=== PATIENT | male | born 1955 | race Caucasian/White ===

== ENCOUNTER → 2016-11-08 | Outpatient (CLI) | payer MEDICARE, OTHER ==
--- NOTE | 2016-11-11 13:14 | CT ---
EXAMINATION TYPE: CT angio abdomen DATE OF EXAM: 11/08/2016 8:05 AM COMPARISON: CTA abdomen October 26, 2015. HISTORY: Right iliac artery dissection CT DLP: 914.20 mGycm, Automated Exposure Control for Dose Reduction was Utilized. CONTRAST: CT scan of the abdomen and pelvis is performed with oral and without and with IV Contrast, patient in jected with 100 ml mL of Omnipaque 350. Aneurysm protocol with Three-D reconstructed images created o n independent workstation and reviewed. FINDINGS: VASCULAR: There is moderate eccentric noncalcified plaque in the abdominal aorta. No aneurysm is seen . There is patent celiac axis, SMA, and bilateral single renal arteries. MYRA is felt occluded at its origin with reconstitution may be from retrograde flow noted shortly after origin. This is similar in appearance to prior exam. There is small focal dissection in the right internal iliac artery at its origin with short segment o f false lumen on axial image 43. There is thrombosis just past this. This is causing significant sten osis of the right common iliac artery with patent portion measuring up to 3.7 mm in diameter on axial image 44. Expected diameter is 10.8 mm at this level. There is moderate to severe mixed plaque in ri ght common iliac artery past this causing stenosis just under 50%. There is patent internal iliac art krystal with suspected significant stenosis at origin.. There is patency of the external iliac artery wit hout significant plaque or stenosis. No significant plaque or stenosis is seen in common femoral edgar ry including branching into superficial and deep femoral arteries at right groin level. There is severe predominantly noncalcified plaque in the proximal left internal carotid artery causin g significant stenosis . Lumen diameter appears narrowed to 3.7 mm on coronal image 20 with reconstit ution to 10.7 mm just inferior to this. Remainder of left common iliac artery shows mild to moderate mixed plaque without significant stenosis. There is some prominent plaque at origin of left internal iliac artery with significant stenosis likely present external iliac artery shows no significant plaq ue or stenosis. There is no significant plaque or stenosis in the common femoral artery including bra nching into superficial and deep femoral arteries at left groin level. LUNG BASES: No significant abnormality is appreciated. LIVER/GB: No significant abnormality is appreciated. PANCREAS: No significant abnormality is seen. SPLEEN: Scattered calyces and throughout the spleen are present product of old granulomatous disease. ADRENALS: No significant abnormality is seen. KIDNEYS: A 5.5 cm partially exophytic simple appearing cyst upper pole level left kidney is redemonst rated. BOWEL: Normal-appearing appendix medially from base of cecum is redemonstrated and stable. PROSTATE/SEMINAL VESICLES: No gross abnormality seen. LYMPH NODES: No greater than 1cm abdominal or pelvic lymph nodes are appreciated. OSSEOUS STRUCTURES: There is moderate multilevel spurring in the thoracolumbar spine. Some disc space narrowing with vacuum disc phenomenon at lumbosacral junction is noted. Multilevel facet arthropathy lower lumbar levels is seen. OTHER: No significant additional abnormality is seen. IMPRESSION: 1. Focal dissection at right common iliac artery origin is stable. 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 Significant stenosis in the bilateral internal iliac arteries at origin is stable. There is diffuse a therosclerotic change in aorta and pelvic branch vessels most prominent at the aortic bifurcation. Si gnificant stenosis in both common iliac arteries is felt present estimated around 70% bilaterally wit hout significant change from prior study.
== END | disposition home or self-care (01) ==
LOC: RADCTMAIN 07:07
PROVIDERS: ATTEND Thoracic Surgery (Cardiothoracic Vascular Surgery)
DX: I77.72 Dissection of iliac artery (principal); I70.0 Atherosclerosis of aorta; I77.1 Stricture of artery
CPT/HCPCS: 74175; Q9967

== ENCOUNTER → 2016-11-14 | Outpatient (CLI) | payer MEDICARE, OTHER ==
--- NOTE | 2016-11-14 12:55 | XR ---
EXAMINATION TYPE: XR Hip Complete RT DATE OF EXAM: 11/14/2016 12:08 PM COMPARISON: NONE HISTORY: Pain TECHNIQUE: 2 views submitted FINDINGS: There is no evidence of erosive change or acute fracture. Calcification along the lateral margin of t he acetabulum suggest previous labral tear. IMPRESSION: 1. No evidence of acute fracture or dislocation.
--- NOTE | 2016-11-14 12:56 | XR ---
EXAM TYPE: LUMBAR SPINE X RAY SERIES COMPARISON: NONE HISTORY: Back pain TECHNIQUE: 3 views are submitted. FINDINGS: Alignment is anatomic. The pedicles are intact. The transverse processes are intact. There is no s pondylolysis or spondylolisthesis. Hypertrophic and degenerative change of the spine. Multilevel degenerative disc disease with severe c hanges at levels L3-S1. Vascular calcifications noted. Suspected left-sided renal stone measuring 8 m m. IMPRESSION: 1. Multilevel severe degenerative disc disease. 2. Suspect left renal stone..
== END ==
LOC: RADXRMAIN 11:35
PROVIDERS: ATTEND Family Medicine
DX: M51.36 Other intervertebral disc degeneration, lumbar region (principal); M25.551 Pain in right hip
CPT/HCPCS: 72100; 73502

== ENCOUNTER → 2016-11-28 | Outpatient (CLI) | payer MEDICARE, OTHER ==
[2016-11-28 16:54] LABS: Non-African American GFR(MDRD) 56 (>60 ml/min/1.73 sqM)
--- NOTE | 2016-11-28 21:02 | MR ---
EXAMINATION TYPE: MR lumbar spine wo/w con DATE OF EXAM: 11/28/2016 6:30 PM COMPARISON: NONE HISTORY: Laminectomy 20 years ago, skin ca 5-10 years ago, CONTRAST: The patient was injected with 19 mL intravenous MultiHance gadolinium contrast. Multiplanar, MultiSpin echo imaging of the lumbar spine was performed. L1-L2: Normal disc appearance without desiccation. No herniation, protrusion or disc bulging. No ca nal stenosis is present. Foramina are patent bilaterally. L2-L3: Moderate to severe disc desiccation. Posterior disc bulge with mild effacement ventral thecal sac. No evidence of disc herniation or central stenosis. There is evidence of facet joint arthropathy with left greater than right foraminal encroachment. Ventral spondylosis identified. L3-L4: Moderate to severe disc desiccation. Posterior disc bulge with mild effacement ventral thecal sac. No evidence of disc herniation or central stenosis. There is evidence of facet joint arthropathy with left greater than right foraminal encroachment. Ventral spondylosis identified. Schmorl node f ormation seen at the inferior endplate of L3 and superior endplate of L4. L4-L5: Moderate to severe disc desiccation. Moderate Posterior disc bulge with effacement ventral th ecal sac. Hypertrophy of the ligamentum flavum and facet joint arthropathy contribute to [id number]-sm-[id number] rate central stenosis. Facet joint arthropathy resulting in bilateral foraminal encroachment. L5-S1: Severe disc desiccation. Circumferential disc bulge with him mild encapsulating spur resulting in posterior disc endplate complex. Mild effacement of the ventral thecal sac. Facet joint arthropat hy resulting in severe bilateral foraminal encroachment. Changes of left hemilaminectomy with enhanci ng granulation tissue. Lumbar segments are intact. No paraspinal masses are identified. Conus medullaris has a normal appe arance. IMPRESSION: 1. Multilevel degenerative disc disease and spondylosis. Central stenosis at L4-5 is stable.
== END | disposition home or self-care (01) ==
LOC: RADMRIMAIN 16:23
PROVIDERS: ATTEND Family Medicine
DX: M48.06 Spinal stenosis, lumbar region (principal); M51.36 Other intervertebral disc degeneration, lumbar region; M47.816 Spondylosis without myelopathy or radiculopathy, lumbar region
CPT/HCPCS: 82565; 72158; A9577

== ENCOUNTER → 2017-11-03 | Outpatient (CLI) | payer MEDICARE ==
--- NOTE | 2017-11-03 14:34 | CT ---
EXAMINATION TYPE: CT angio abdomen DATE OF EXAM: 11/03/2017 COMPARISON: 11/08/2016 HISTORY: 62-year-old male Follow up right iliac artery dissection CT DLP: 592 mGycm, Automated Exposure Control for Dose Reduction was Utilized. Technique: CT scan of the abdomen images performed in the arterial phase with IV Contrast, patient i njected with 100 mL of Isovue 370. Coronal and sagittal MIP reconstructions performed. 3-D reconstruc tions generated on a dedicated independent workstation. FINDINGS: Heart normal size without pericardial effusion. Lung bases clear without pleural effusion. Liver mildly enlarged at 19.1 cm. There is low attenuation of the hepatic parenchyma, possible underl emely hepatic steatosis. There is a replaced right hepatic artery from the SMA. Gallbladder, adrenal glands, right kidney, and pancreas show no gross abnormality. Large 6.2 cm cyst within the left kidney is unchanged. Multiple calcified granulomas in the spleen re demonstrated. No dilated small bowel, free fluid, or free air. Moderate stool in the cecum and ascending colon. No perisplenic inflammatory change. Moderate atherosclerotic calcification and plaque throughout the abdominal aorta and iliac arteries. The celiac axis and SMA are patent Salazar bilateral renal arteries are patent. Redemonstrated occlusion at the origin of the inferior mesenteric artery. Redemonstrated 2.0 to 2.5 cm thick walled dissection flap redemonstrated along the proximal right com mon iliac artery. Similar severe narrowing at the origin of the bilateral internal iliac arteries and moderate stenosis at the proximal left common iliac artery with interval increase in plaque ulceration since prior exa m. Bones: Degenerative changes at the SI joints and mid to lower lumbar spine. Endplate spondylosis lowe r thoracic spine. IMPRESSION: 1. CHRONIC NONOCCLUDING DISSECTION MEASURING 2.0 TO 2.5 CM LONG INVOLVING THE PROXIMAL RIGHT COMMON I LIAC ARTERY. 2. MODERATE ATHEROSCLEROTIC NARROWING AT THE PROXIMAL LEFT COMMON ILIAC ARTERY WITH INCREASING PLAQUE ULCERATION SINCE PRIOR EXAM. SOME OVERHANGING, LOOSE APPEARING PLAQUE IS NOW PRESENT HERE. 3. CONTINUED SEVERE FOCAL STENOSES AT THE ORIGIN OF THE INTERNAL ILIAC ARTERIES ON BOTH SIDES. 5. STABLE OCCLUSION OF THE MYRA AT ITS ORIGIN WITH RETROGRADE RECONSTITUTION. 6. MILD HEPATOMEGALY (19.1 CM) AND SUGGESTION OF UNDERLYING HEPATIC STEATOSIS.
== END ==
LOC: RADCTMAIN 13:31
PROVIDERS: ATTEND Thoracic Surgery (Cardiothoracic Vascular Surgery)
DX: I77.72 Dissection of iliac artery (principal); I70.202 Unspecified atherosclerosis of native arteries of extremities, left leg; I70.203 Unspecified atherosclerosis of native arteries of extremities, bilateral legs; R16.0 Hepatomegaly, not elsewhere classified
CPT/HCPCS: 74175; Q9967

== ENCOUNTER → 2018-11-04 | Outpatient (CLI) | payer MEDICARE ==
[2018-11-04 13:47] LABS: Blood Urea Nitrogen 19 mg/dL (9-20)
--- NOTE | 2018-11-04 17:23 | CT ---
EXAMINATION TYPE: CT angio abdomen DATE OF EXAM: 11/04/2018 3:00 PM COMPARISON: 11/03/2017 HISTORY: Right iliac artery disection CT DLP: 928.50 mGycm Automated exposure control for dose reduction was used. TECHNIQUE: Performed without and with IV Contrast, patient injected with 100 ml mL of Isovue 370. Postcontrast imaging is performed at 5 mm thick sections.. FINDINGS: Abdominal aorta appears without dissection or aneurysm At the right common iliac artery there is a dissection. This may has some minimal extent into the pro ximal left common iliac artery. This extends to the internal and external Iliac branch. No dissection is evident elsewhere. This examination is compared with 11/03/2017, findings appear stable. : Mild fatty infiltration liver is present. Multiple scattered calcified granuloma are present. A sup erior left renal pole cyst is evident. Vascular calcifications within the aorta. The bowel without or al contrast are unremarkable. Urinary bladder appears unremarkable. IMPRESSION: THE RIGHT COMMON ILIAC ARTERY DISSECTION IS STABLE IN APPEARANCE FROM THE PREVIOUS YEAR.
== END ==
LOC: RADCTMAIN 12:47
PROVIDERS: ATTEND Thoracic Surgery (Cardiothoracic Vascular Surgery)
DX: I77.72 Dissection of iliac artery (principal)
CPT/HCPCS: 82565; 84520; 74175; 36415; Q9967

== ENCOUNTER → 2018-12-08 | Outpatient (CLI) | payer MEDICARE | END | disposition home or self-care (01) | LOC: LABWHC1 12:08 | PROVIDERS: ATTEND Physician Assistant | DX: Z01.812 Encounter for preprocedural laboratory examination (principal); N28.9 Disorder of kidney and ureter, unspecified | CPT/HCPCS: 36415; 82565; 84520 ==

== ENCOUNTER → 2019-01-15 | Outpatient (CLI) | payer MEDICARE ==
[2019-01-15 07:39] LABS: Basophils # (A) 0.1 k/uL (0-0.2); Basophils % (A) 1 %; Eosinophils % (A) 1 %; HCT 44.4 % (39.0-53.0); HGB 13.9 gm/dL (13.0-17.5); Lymphocytes # (A) 1.1 k/uL (1.0-4.8); Lymphocytes % (A) 14 %; MCH 28.9 pg (25.0-35.0); MCHC 31.4 g/dL (31.0-37.0); MCV 92.1 fL (80.0-100.0); Mean Platelet Volume 7.2; Monocytes # (A) 0.7 k/uL (0-1.0); Monocytes % (A) 9 %; Neutrophils # (A) 5.9 k/uL (1.3-7.7); Neutrophils % (A) 74 %; Platelet Count 405 k/uL (150-450); RBC 4.83 m/uL (4.30-5.90); RDW 14.5 % (11.5-15.5)
[2019-01-15 07:44] LABS: African American GFR (CKD) >90 (>60 ml/min/1.73 sqM); Anion Gap 8 mmol/L; Blood Urea Nitrogen 18 mg/dL (9-20); Calcium 10.3 mg/dL (8.4-10.2); Carbon Dioxide 32 mmol/L (22-30); Chloride 103 mmol/L (98-107); Glucose 120 mg/dL (74-99); Sodium 143 mmol/L (137-145)
[2019-01-15 07:45] LABS: INR 0.9 (<1.2); Partial Thromboplastin Time 27.9 sec (22.0-30.0); Prothrombin Time 10.1 sec (9.0-12.0)
[2019-01-15 07:51] LABS: Appearance,Urine Clear (Clear); Bilirubin,Urine Negative (Negative); Blood,Urine Negative (Negative); Color,Urine Yellow; Glucose,Urine (UA) Negative (Negative); Ketones,Urine Negative (Negative); Leukocyte Esterase,Urine Negative (Negative); Nitrite,Urine Negative (Negative); Protein,Urine Negative (Negative); Specific Gravity,Urine 1.015 (1.001-1.035); Urobilinogen,Urine <2.0 mg/dL (<2.0)
--- NOTE | 2019-01-15 08:51 | XR ---
EXAMINATION TYPE: XR chest 2V DATE OF EXAM: 01/15/2019 COMPARISON: 12/06/2015 TECHNIQUE: PA and lateral views submitted. HISTORY: Preop back surgery FINDINGS: The lungs are clear and there is no pneumothorax, pleural effusion, or focal pneumonia. Hyperinflat ion suggests COPD. Hypertrophic and degenerative change of the spine. IMPRESSION: 1. No acute process.
== END | disposition home or self-care (01) ==
LOC: LABPAT 06:37
PROVIDERS: ATTEND Orthopaedic Surgery Orthopaedic Surgery of the Spine
DX: Z01.818 Encounter for other preprocedural examination (principal); Z01.812 Encounter for preprocedural laboratory examination; Z79.01 Long term (current) use of anticoagulants; M48.061 Spinal stenosis, lumbar region without neurogenic claudication
CPT/HCPCS: 71046; 80048; 81003; 85025; 85610; 85730

== ENCOUNTER 2019-01-20 10:09 | Day surgery (SDC) | payer MEDICARE ==
[~2019-01-20 10:09] MED LIST: BACITRACIN 50,000 UNIT, POLYMYXIN B 500,000 UNIT in SODIUM CHLORIDE 0.9% IRRIGATIO 1,00... IRRIGATION ONE; LIDOCAINE 1% 20 ML VIAL (10MG/ML) FOR IV START INTRADERMA PRN; ONDANSETRON 4 MG/2 ML VIAL IVP ONE; ceFAZolin IN SWFI 2 GM/20 ML SYRINGE IVP ONE
[2019-01-20] MEDS: LACTATED RINGERS 1,000 ML IV SCH (10:54)
[2019-01-20] MEDS ORDERED: ePHEDrine SULFATE/0.9% NACL/PF 50 MG/5 ML SYRINGE IV ONE (12:21)
[2019-01-20] MEDS ORDERED: ROCURONIUM BROMIDE 10 MG/ML 10 ML VIAL IV ONE (12:21)
[2019-01-20] MEDS ORDERED: PHENYLEPHRINE-0.9% NACL SYG 1 MG/10 ML SYRINGE ONE (12:21)
[2019-01-20] MEDS ORDERED: SUCCINYLCHOLINE CHLORIDE 100 MG/5 ML SYR IV ONE (12:21)
[2019-01-20] MEDS ORDERED: LIDOCAINE 1% INJ 10MG/ML (20 ML MDV) ONE (12:21)
[2019-01-20] MEDS ORDERED: NEOSTIGMINE 1 MG/ML 10 ML VIAL ONE (12:21)
[2019-01-20] MEDS ORDERED: fentaNYL (PF) 50 MCG/ML 2 ML AMP ONE (12:21)
[2019-01-20] MEDS ORDERED: MIDAZOLAM 2 MG/2 ML VIAL ONE (12:21)
[2019-01-20] MEDS ORDERED: PROPOFOL 10 MG/ML 20 ML VIAL IV ONE (12:21)
[2019-01-20] MEDS ORDERED: GLYCOPYRROLATE 0.2 MG/ML 2 ML VIAL ONE (12:21)
[2019-01-20] MEDS ORDERED: GELATIN SPONGE,ABSORB (LARGE) 1 EACH SPONGE TOPICAL ONE (12:35)
[2019-01-20] MEDS ORDERED: THROMBIN (BOVINE) 5,000 UNIT VIAL TOPICAL ONE (12:35)
[2019-01-20] MEDS ORDERED: LIDOCAINE 0.5%-EPI 1:200,000 50 ML VIAL SQ ONE (12:35)
[2019-01-20] MEDS ORDERED: LACTATED RINGERS 1,000 ML IV ONE (13:00)
[2019-01-20] MEDS ORDERED: methylPREDNISolone ACETATE 40 MG/ML 1 ML VIAL MISCELLANE ONE (13:41)
--- NOTE | 2019-01-20 13:41 | FL ---
EXAMINATION TYPE: FL guidance operating room DATE OF EXAM: 01/20/2019 HISTORY: Flouroscopy time 1 seconds of fluoroscopy provided. IMPRESSION: 1. Fluoroscopy time.
[2019-01-20] MEDS ORDERED: BENZOCAINE/MENTHOL LOZENG 1 EACH LOZENGE MUCOUS MEM PRN (14:02)
[2019-01-20] MEDS ORDERED: HYDROmorphone 0.5 MG/0.5 ML SYRINGE IVP PRN (14:02)
[2019-01-20] MEDS ORDERED: HYDROmorphone 1 MG/ML 1 ML SYRINGE IVP PRN (14:02)
[2019-01-20] MEDS ORDERED: MAGNESIUM HYDROXIDE 2,400 MG/10 ML CUP PO PRN (14:02)
[2019-01-20] MEDS ORDERED: KETOROLAC 30 MG/ML 1 ML VIAL IVP PRN (14:03)
[2019-01-20] MEDS ORDERED: HYDROcodone/APAP 5-325MG 1 EACH TAB PO PRN (14:03)
[2019-01-20] MEDS ORDERED: IBUPROFEN 600 MG TAB PO PRN (14:03)
[2019-01-20] MEDS ORDERED: CYCLOBENZAPRINE 10 MG TAB PO PRN (14:04)
[2019-01-20] MEDS ORDERED: ALBUTEROL NEBULIZED 2.5 MG/3 ML INHALATION PRN (14:04)
--- NOTE | 2019-01-20 14:10 | P.OP ---
Date of Procedure: 01/20/19 Preoperative Diagnosis: Severe spinal stenosis L4 5, L3 4, neurogenic claudication, lower extremity radiculopathy, degenerative disc disease, degenerative scoliosis, low back pain, facet arthrosis Postoperative Diagnosis: Same Anesthesia: GETA Pathology: none sent Condition: stable Disposition: PACU Description of Procedure: DESCRIPTION OF PROCEDURE(S): BRIEF OPERATIVE NOTE Preoperative Diagnosis: Severe spinal stenosis L4 5, L3 4, neurogenic claudication, lower extremity radiculopathy, degenerative disc disease, degenerative scoliosis, low back pain, facet arthrosis Postoperative Diagnosis: Same Procedure: Laminectomy and decompression bilaterally with partial medial facetectomy and foraminotomy L3 4 L4 5 Use of fluoroscopic guidance Placement of interlaminar stabilization device (Coflex device) L3 4 L4 5 Surgeon: Dr. Foster Sort Supervisor: Timmy SÁNCHEZ who is present throughout the entire the case persistence during positioning, dissection, exposure, visualization, and all crucial elements of the case as well as closure. Anesthesia: General anesthesia Estimated blood loss: Approximate 75 mL Complications: None apparent Components implanted: [employer] Coflex interlaminar stabilization device 12 mm at L3 4 and L4 5 Disposition: To recovery room in good stable condition. OPERATIVE INDICATIONS The patient has been having issues in their lower back and lower extremities. The patient was having evidence of neurogenic claudication and spinal stenosis along with issues with lower extremity radiculopathy. The patient was found to have significant and severe spinal stenosis at L3 4 and L4 5 which correlated well with their low back and lower extremity symptoms. He had significant foraminal stenosis and facet arthrosis with degenerative spondylosis. All these issues correlate very well with his low back and lower extremity symptoms as well as his neurologic intermittent claudication and lower extremity rad iculopathy. The patient has been through conservative treatment. He is not having any prolonged benefit despite aggressive conservative treatment. With their imaging, and the level of their stenosis and their propensity for the possibility of recurrent stenosis I felt that decompression with intralaminar stabilization would be a good benefit for the patient. We discussed various treatment options including surgery, and the patient wishes to proceed with surgery We discussed the risk, patient's alternatives and benefits of surgery including but not limited to, risk of bleeding risk of infection, risk of need for further surgery, risk of decreased, loss of motion, loss of function, nerve damage, paralysis, heart attack, blindness and . OPERATIVE SUMMARY After discussing all the risks, patient alternatives and benefits at length, the patient elected to proceed with surgical intervention, signed informed consent, and presented for their procedure. The patient was seen and examined in the preoperative holding area and the surgical site was marked. The patient was given antibiotics and brought to the operating room. The patient was sedated and intubated by anesthesia in standard fashion. The patient was positioned on to the operating room table in a prone position on the appropriate frame which was well-padded and well molded. We were careful to pad any bony prominences and pressure points. We were careful to maintain the patient's cervical spine and good neutral alignment and position throughout. The patient was prepped and draped in a normal standard fashion. An appropriate timeout and keystone protocol performed. We were able to proceed with the surgery. Fluoroscopy was utilized to establish the appropriate level. The local wound area was infiltrated with local anesthetic. An incision was made at the midline longitudinally over the appropriate levels extending from his prior old incision at the midline and extending cephalad at L3 4 and L4 5 approximately 6 cm in length. Dissection was taken down subcutaneously to the level of the fascia which was split midline. Dissection was taken over the lamina. Intraoperative fluoroscopy was taken which showed a marker at the appropriate level. With the appropriate level positively confirmed, we were able to proceed with laminectomy. The wound was copiously irrigated and suctioned dry as had been done periodically throughout the case. I performed a laminectomy with a combination of curettes and a high-speed bur and Kerrison rongeurs. He had quite severe thickening of ligamentum flavum at L3 4 L4 5 in particular at L4 5 with significant facet arthrosis bilateral foraminal stenosis found at both these levels. These were remedied with the decompression. A small medial facetectomy was performed again further access. This was done bilaterally at that level. A partial foraminotomy was also performed. Portions of the ligamentum flavum were taken down to expose the dura and traversing nerve root. I was able to mobilize the traversing nerve root and gain access to the disc space. I did not feel he had to perform any discectomy. We were no extruded fragments. We're able get wide lateral decompression at L3 4 and L4 5 with the laminectomy foraminotomy and partial medial facetectomy. There is no evidence of dural tear or leak. Good hemostasis maintained. The wound was copiously irrigated and suctioned dry. Good decompression was noted. At this point further prepared the interspinous process and interlaminar space with a combination of curettes and a high-speed bur and Kerrison rongeurs. As able get good parallel alignment at the interspinous process space and interlaminar space. I used a trial spacer for the Coflex device and have good fit and fill with the appropriate size device. I had to shave down the spinous process at to allow for appropriate positioning of the Coflex device. The device was prepared and then positioned and malleted in position with good alignment and good position and good bony purchase at the interlaminar space. The position was checked and found to be approximately 3 mm away from the dura without impingement on the dura itself. This was done first at L4 5 and then at L3 4. It was checked and found to be stable. Intraoperative C-arm was utilized to confirm the alignment and position at the appropriate levels. We were able to proceed with closure. The fascia was closed for a watertight closure. The subcuticular tissue was closed with absorbable suture. The wound was cleaned and dried and dressed with the appropriate dressing. The drapes were broken down. The patient was gently rolled back onto their hospital bed being careful to maintain their cervical spine and good neutral alignment and position. They were woken up by anesthesia, extubated, and brought to the recovery room in good stable condition. The patient will be admitted to the hospital for observation and for appropriate postoperative care, medical management and monitoring. We will continue to follow them closely about the postoperative course.
[2019-01-20] MEDS: HYDROmorphone 0.5 MG/0.5 ML SYRINGE IVP PRN ×4 (14:43→15:10)
[2019-01-20 15:42] VITALS: BMI 25.2
[2019-01-20] MEDS: SODIUM CHLORIDE 0.9% 1,000 ML IV SCH (19:20)
[2019-01-20] MEDS: METOPROLOL TARTRATE 25 MG TAB PO SCH (20:52)
[2019-01-20] MEDS: ceFAZolin IN SWFI 2 GM/20 ML SYRINGE IVP SCH (20:53)
[2019-01-21] MEDS: HYDROcodone/APAP 5-325MG 1 EACH TAB PO PRN ×2 (00:57→06:22)
[2019-01-21] MEDS: SODIUM CHLORIDE 0.9% 1,000 ML IV SCH (05:44)
[2019-01-21] MEDS ORDERED: ceFAZolin IN SWFI 2 GM/20 ML SYRINGE IVP SCH (06:30)
[2019-01-21 07:27] VITALS: BP 151/68; PULSE 71; RESP 15; TEMP 97.9
[2019-01-21] MEDS: ceFAZolin IN SWFI 2 GM/20 ML SYRINGE IVP SCH (07:27)
[2019-01-21] MEDS: LACTATED RINGERS 1,000 ML IV SCH (07:39)
[2019-01-21] MEDS ORDERED: SYMBICORT 160-4.5 MCG INHALER INHALATION SCH (08:00)
[2019-01-21] MEDS: GABAPENTIN 300 MG CAP PO SCH (08:24)
[2019-01-21] MEDS: METOPROLOL TARTRATE 25 MG TAB PO SCH (08:25)
[2019-01-21] MEDS ORDERED: ATORVASTATIN 10 MG TAB PO SCH (09:00)
[2019-01-21] MEDS ORDERED: DILTIAZEM CD 120 MG CAP.ER.24H PO SCH (09:00)
[2019-01-21] MEDS ORDERED: LOSARTAN 50 MG TAB PO SCH (09:00)
--- NOTE | 2019-01-21 09:37 | P.DS ---
Providers Date of admission: 01/20/2019 Attending physician: Sonya Foster Primary care physician: Eddie Talbert Hospital Course: The patient presented on the day of admission as per their operative note. He had severe spinal stenosis L3 4 and L4 5 with neurogenic claudication lower extremity radiculopathy. He underwent his laminectomy decompression with placement of interlaminar stabilizer at L3 4 and L4 5 as per his operative note. He says his legs are doing well. He feels there is not as much numbness tingling. He has some limited motion already had bedside and to the bathroom. He says he is tolerating his diet adequately. Physical Exam The incision site is clean dry and intact. There is no erythema no drainage. There is no purulence no evidence of infection. The dressing is changed. There is no active drainage. There is no significant swelling. Abdomen soft and nontender. Chest has good excursion with deep inspiration and expiration. The patient has active and passive range of motion intact at the upper and lower extremities. There is no acute change in neurologic status. He has sustained dorsal flexion or flexion and EHL intact. His thighs and calves are soft and nontender. Hospital Course Postoperative day #1 status post decompressive laminectomy and bilateral foraminotomies L3 4 L4 5 for his severe spinal stenosis with lower extremity radiculopathy claudication The patient has been making good progress postoperatively. They have completed the prophylactic antibiotics without any signs or symptoms of infection. The patient has been able to advance their diet, and is tolerating diet adequately. The pain was initially controlled with IV medications and is now controlled appropriately with oral medications. The patient has been able to increase their mobilization. The patient has progressed appropriately. I think they are in good stable condition for discharge today. They will be sent home with appropriate prescriptions. I answered their questions to the best of my ability in a language that they can understand and they are agreeable with the plan. They will follow up as directed in approximately 2 weeks or sooner if he is having any problems. Patient Condition at Discharge: Good Plan - Discharge Summary Discharge Rx Participant: No New Discharge Prescriptions: New HYDROcodone/APAP 5-325MG [[place] 5] 1 each PO Q4HR PRN #18 tab PRN Reason: Pain No Action Simvastatin [Zocor] 20 mg PO QAM Metoprolol Tartrate [Lopressor] 25 mg PO BID Albuterol Inhaler [Ventolin Inhaler] 1 puff INHALATION Q8HR PRN PRN Reason: Wheezing Gabapentin [Neurontin] 900 mg PO DAILY Cyclobenzaprine [Flexeril] 10 mg PO BID PRN PRN Reason: Muscle Spasm Apixaban [Eliquis] 5 mg PO BID Paxil(Unknown Dose) 1 tab PO HS Fluticasone/Vilanterol [Breo Ellipta 200-25 Mcg INH] 1 inhalation INHALATION QAM Diltiazem HCl [Diltiazem ER] 120 mg PO QAM Losartan Potassium 100 mg PO QAM Discharge Medication List Albuterol Inhaler [Ventolin Inhaler] 1 puff INHALATION Q8HR PRN 11/20/13 [History] Metoprolol Tartrate [Lopressor] 25 mg PO BID 11/20/13 [History] Simvastatin [Zocor] 20 mg PO QAM 11/20/13 [History] Apixaban [Eliquis] 5 mg PO BID 01/19/19 [History] Cyclobenzaprine [Flexeril] 10 mg PO BID PRN 01/19/19 [History] Diltiazem HCl [Diltiazem ER] 120 mg PO QAM 01/19/19 [History] Fluticasone/Vilanterol [Breo Ellipta 200-25 Mcg INH] 1 inhalation INHALATION QAM 01/19/19 [History] Gabapentin [Neurontin] 900 mg PO DAILY 01/19/19 [History] Losartan Potassium 100 mg PO QAM 01/19/19 [History] Paxil(Unknown Dose) 1 tab PO HS 01/19/19 [History] HYDROcodone/APAP 5-325MG [[place] 5] 1 each PO Q4HR PRN #18 tab 01/21/19 [Rx] Follow up Appointment(s)/Referral(s): Sonya Foster DO [Doctor of Osteopathic Medicine] - 2 Weeks Activity/Diet/Wound Care/Special Instructions: Keep site clean. May shower with waterproof Tegaderm intact. Do not soak in a tub. After 72 hours postoperatively, patient May remove dressing and then may shower with area uncovered. Leave Steri-Strips intact and allow them to fray off on their own. May ambulate as tolerated. Avoid heavy or rigorous activity. No repetitive bending twisting or lifting. No overhead work. Discharge Disposition: HOME SELF-CARE
[2019-01-21] MEDS ORDERED: APIXABAN 5 MG TAB PO SCH (14:04)
== END 2019-01-21 13:20 | disposition home or self-care (01) ==
LOC: OR 10:09 → 4SSUR 14:13 → OR 15:00
PROVIDERS: ATTEND Orthopaedic Surgery Orthopaedic Surgery of the Spine
DX: M48.062 Spinal stenosis, lumbar region with neurogenic claudication (principal); M51.16 Intervertebral disc disorders with radiculopathy, lumbar region; M47.26 Other spondylosis with radiculopathy, lumbar region; M41.50 Other secondary scoliosis, site unspecified; M96.1 Postlaminectomy syndrome, not elsewhere classified; I10 Essential (primary) hypertension; I48.91 Unspecified atrial fibrillation; H40.9 Unspecified glaucoma; R45.0 Nervousness; Z82.49 Family history of ischemic heart disease and other diseases of the circulatory system; Z85.828 Personal history of other malignant neoplasm of skin; I73.9 Peripheral vascular disease, unspecified; J44.9 Chronic obstructive pulmonary disease, unspecified; G47.33 Obstructive sleep apnea (adult) (pediatric); F17.210 Nicotine dependence, cigarettes, uncomplicated; Z86.73 Personal history of transient ischemic attack (TIA), and cerebral infarction without residual deficits; J98.4 Other disorders of lung; Z79.01 Long term (current) use of anticoagulants; Z79.1 Long term (current) use of non-steroidal anti-inflammatories (NSAID); Z79.51 Long term (current) use of inhaled steroids; Z79.899 Other long term (current) drug therapy; Z88.8 Allergy status to other drugs, medicaments and biological substances
CPT/HCPCS: 22867; 94640; 97161; 72020; C1713; J2250; J1030; J2710; J2405; J2001; J3010; J2370; J0330; J2704; J1170; J0690 ×2; 86850; 86900; 86901

== ENCOUNTER → 2019-11-19 | Outpatient (CLI) | payer MEDICARE ==
[2019-11-19 15:12] LABS: African American GFR (CKD) >90 (>60 ml/min/1.73 sqM); Blood Urea Nitrogen 18 mg/dL (9-20); Non-African American GFR(CKD) 82 (>60 ml/min/1.73 sqM)
--- NOTE | 2019-11-19 19:27 | CT ---
CT angiogram of the abdomen and pelvis HISTORY: Dissection of iliac artery Helical acquisition through the abdomen and pelvis following 100 cc Isovue-[address] performed pre a nd postcontrast, 3-dimensional reconstructions performed on an alternate workstation. Correlation to prior CT dated 11/04/2018 The lung bases are clear, there is no pleural pericardial effusion. ABDOMEN: There is no pneumoperitoneum, retroperitoneal adenopathy, or ascites. The dissection noted on prior exam involving the right iliac artery shows a similar appearance to pre vious exam. There is no evident flow limitation, internal and external iliac arteries are patent. Ath eromatous changes are present involving the aorta, small focal filling defect along the left lateral margin of the aorta just cephalad to the origin of the left renal artery may represent a small shelfl oralia plaque shows a similar appearance. Kidneys show normal perfusion, stable appearance. Solid organs are also stable. Postop changes noted to the spinous processes of the L3-4 and L4-5 levels, degenerative disc changes are present in the visualized lumbar spine, Schmorl's node formation present at multiple endplates, t here is multilevel spondylosis and intervertebral vacuum phenomenon present. Prostate is enlarged and shows associated calcification. IMPRESSION: The appearance of patient's right common iliac artery dissection is stable.
== END | disposition home or self-care (01) ==
LOC: RADCTMAIN 14:42
PROVIDERS: ATTEND Thoracic Surgery (Cardiothoracic Vascular Surgery)
DX: I77.72 Dissection of iliac artery (principal)
CPT/HCPCS: 82565; 84520; 36415; 74174; Q9967

== ENCOUNTER 2020-01-12 09:31 | Day surgery (SDC) | payer MEDICARE ==
[2020-01-10 13:06] VITALS: BMI 28.7
[~2020-01-12 09:31] MED LIST changes: -BACITRACIN 50,000 UNIT, POLYMYXIN B 500,000 UNIT in SODIUM CHLORIDE 0.9% IRRIGATIO 1,00... IRRIGATION ONE; +LACTATED RINGERS 1,000 ML IV SCH; -LIDOCAINE 1% 20 ML VIAL (10MG/ML) FOR IV START INTRADERMA PRN; -ONDANSETRON 4 MG/2 ML VIAL IVP ONE; -ceFAZolin IN SWFI 2 GM/20 ML SYRINGE IVP ONE
[2020-01-12] MEDS ORDERED: LIDOCAINE 1% (10MG/ML) FOR IV START INTRADERMA ONE (10:05)
[2020-01-12 10:06] VITALS: TEMP 98.3
--- NOTE | 2020-01-12 10:35 | P.GSHP ---
History of Present Illness H&P Date: 01/12/20 CHIEF COMPLAINT: Colon screen HISTORY OF PRESENT ILLNESS: The patient is a 64-year-old male who presents for colon screen. Lower endoscopy was offered for further evaluation and management. PAST MEDICAL HISTORY: Please see list. PAST SURGICAL HISTORY: Please see list. MEDICATIONS: Please see list. ALLERGIES: Please see list. SOCIAL HISTORY: No illicit drug use FAMILY HISTORY: No reports of Crohn disease or ulcerative colitis. REVIEW OF ORGAN SYSTEMS: CONSTITUTIONAL: No reports of fevers or chills. PHYSICAL EXAM: VITAL SIGNS: Stable GENERAL: Well-developed pleasant in no acute distress. HEENT: No scleral icterus. Extraocular movements grossly intact. Moist buccal mucosa. NECK: Supple without lymphadenopathy. CHEST: Unlabored respirations. Equal bilateral excursions. CARDIOVASCULAR: Regular rate and rhythm. Distal 2+ pulses. ABDOMEN: Soft, nontender, nondistended. MUSCULOSKELETAL: No clubbing, cyanosis, or edema. ASSESSMENT: 1. Colon screen. PLAN: 1. Recommend proceeding with a lower endoscopy Past Medical History Past Medical History: Atrial Fibrillation, COPD, Hyperlipidemia, Hypertension, Sleep Apnea/CPAP/BIPAP Additional Past Medical History / Comment(s): COPD,arthritis History of Any Multi-Drug Resistant Organisms: None Reported Past Surgical History: Back Surgery Additional Past Surgical History / Comment(s): groin cyst, lt knee acl repair, prior colonoscopy Past Anesthesia/Blood Transfusion Reactions: No Reported Reaction Past Psychological History: No Psychological Hx Reported Smoking Status: Former smoker - Past Family History Mother Family Medical History: Congestive Heart Failure (CHF), Dementia, Hypertension Medications and Allergies Home Medications Medication Instructions Recorded Confirmed Type Albuterol Inhaler (Mhu) [Ventolin 1 puff INHALATION Q8HR PRN 11/20/13 01/12/20 History Inhaler] Metoprolol Tartrate [Lopressor] 25 mg PO BID 11/20/13 01/12/20 History Simvastatin [Zocor] 20 mg PO QAM 11/20/13 01/12/20 History Apixaban [Eliquis] 5 mg PO BID 01/19/19 01/12/20 History Diltiazem HCl [Diltiazem ER] 120 mg PO QAM 01/19/19 01/12/20 History Fluticasone/Vilanterol [Breo 1 inhalation INHALATION QAM 01/19/19 01/12/20 History Ellipta 200-25 Mcg INH] Losartan Potassium 100 mg PO QAM 01/19/19 01/12/20 History Celecoxib [CeleBREX] 200 mg PO DAILY 01/10/20 01/12/20 History Allergies Allergy/AdvReac Type Severity Reaction Status Date / Time baclofen Allergy Rash/Hives Verified 01/12/20 09:56 Surgical - Exam Vital Signs Temp Pulse Resp BP Pulse Ox 98.3 F 81 18 160/80 95 01/12/20 09:49 01/12/20 09:49 01/12/20 09:49 01/12/20 09:49 01/12/20 09:49
[2020-01-12] MEDS ORDERED: PROPOFOL 10 MG/ML 20 ML VIAL IV ONE (10:36)
--- NOTE | 2020-01-12 11:08 | P.PCN ---
Date of Procedure: 01/12/20 Description of Procedure: PREOPERATIVE DIAGNOSIS: Personal history of colon polyps POSTOPERATIVE DIAGNOSIS: Sigmoid colon polyp Descending colon polyp Sigmoid diverticulosis OPERATION: Colonoscopy to the ileocecal valve and appendiceal orifice, cecum Colonoscopy with cold forceps biopsies SURGEON: Madie Coyle MD. ANESTHESIA: MAC. INDICATIONS: The patient is an 64-year-old male who presents with personal history of colon polyps. Last colonoscopy 5 years. Benefits and risks were described and informed consent was obtained. DESCRIPTION OF PROCEDURE: The patient had undergone Suprep. He had been brought into the operating room and laid in the left lateral decubitus position. After adequate intravenous sedation, the rectum was examined with 2% lidocaine jelly. The prostate was unremarkable. No external hemorrhoids were encountered. The rectal tone was within normal limits. No lesions were palpated in the rectal vault. An Olympus colonoscope was advanced until the cecum, ileocecal valve and appendiceal orifice were clearly viewed. The prep was fair. Sigmoid diverticulosis was encountered with redundant sigmoid colon requiring abdominal wall pressure. Multiple colonic polyps were found and removed with cold biopsy forceps.. No evidence of focal colitis was found. Retroflexion of the scope demonstrated no internal hemorrhoids. The colon was desufflated. The patient had tolerated the procedure well. Withdrawal time was over 6 minutes. FINDINGS: Aronchick preparation quality scale 2 (1-5) No internal hemorrhoids No external hemorrhoids No arteriovenous malformations. Sigmoid diverticulosis Redundant sigmoid colon Removal of 3 polyps from the proximal, mid transverse colon and descending colon: - Cold forceps biopsy at 30 cm from the anal verge x 2, 4 and 3 mm polyps, descending colon - Cold forceps biopsy at 20 cm from the anal verge, 5 mm polyp, sigmoid colon No focal colitis. RECOMMENDATIONS: Repeat colonoscopy 5 years, 2024 Plan - Discharge Summary Discharge Rx Participant: Yes New Discharge Prescriptions: No Action Simvastatin [Zocor] 20 mg PO QAM Metoprolol Tartrate [Lopressor] 25 mg PO BID Albuterol Inhaler (Mhu) [Ventolin Inhaler] 1 puff INHALATION Q8HR PRN PRN Reason: Wheezing Apixaban [Eliquis] 5 mg PO BID Fluticasone/Vilanterol [Breo Ellipta 200-25 Mcg INH] 1 inhalation INHALATION QAM Diltiazem HCl [Diltiazem ER] 120 mg PO QAM Losartan Potassium 100 mg PO QAM Celecoxib [CeleBREX] 200 mg PO DAILY Discharge Medication List Albuterol Inhaler (Mhu) [Ventolin Inhaler] 1 puff INHALATION Q8HR PRN 11/20/13 [History] Metoprolol Tartrate [Lopressor] 25 mg PO BID 11/20/13 [History] Simvastatin [Zocor] 20 mg PO QAM 11/20/13 [History] Apixaban [Eliquis] 5 mg PO BID 01/19/19 [History] Diltiazem HCl [Diltiazem ER] 120 mg PO QAM 01/19/19 [History] Fluticasone/Vilanterol [Breo Ellipta 200-25 Mcg INH] 1 inhalation INHALATION QAM 01/19/19 [History] Losartan Potassium 100 mg PO QAM 01/19/19 [History] Celecoxib [CeleBREX] 200 mg PO DAILY 01/10/20 [History]
[2020-01-12 11:47] VITALS: BP 112/74; PULSE 80; RESP 20
== END 2020-01-12 12:10 | disposition home or self-care (01) ==
LOC: ORWHC2ENDO 09:31
PROVIDERS: ATTEND Surgery Plastic and Reconstructive Surgery
DX: Z12.11 Encounter for screening for malignant neoplasm of colon (principal); D12.5 Benign neoplasm of sigmoid colon; D12.4 Benign neoplasm of descending colon; K57.30 Diverticulosis of large intestine without perforation or abscess without bleeding; Q43.8 Other specified congenital malformations of intestine; Z86.010 Personal history of colon polyps; I48.91 Unspecified atrial fibrillation; J44.9 Chronic obstructive pulmonary disease, unspecified; E78.5 Hyperlipidemia, unspecified; I10 Essential (primary) hypertension; G47.30 Sleep apnea, unspecified; M19.90 Unspecified osteoarthritis, unspecified site; Z99.89 Dependence on other enabling machines and devices; Z98.890 Other specified postprocedural states; Z87.2 Personal history of diseases of the skin and subcutaneous tissue; Z87.39 Personal history of other diseases of the musculoskeletal system and connective tissue; Z87.891 Personal history of nicotine dependence; Z79.899 Other long term (current) drug therapy; Z79.01 Long term (current) use of anticoagulants; Z79.51 Long term (current) use of inhaled steroids; Z79.1 Long term (current) use of non-steroidal anti-inflammatories (NSAID); Z88.8 Allergy status to other drugs, medicaments and biological substances; Z82.49 Family history of ischemic heart disease and other diseases of the circulatory system; Z81.8 Family history of other mental and behavioral disorders
CPT/HCPCS: 45380; 88305; J2704

== ENCOUNTER → 2020-05-15 | Outpatient (CLI) | payer MEDICARE ==
--- NOTE | 2020-05-15 15:53 | XR ---
EXAMINATION TYPE: XR cervical spine limited DATE OF EXAM: 05/15/2020 COMPARISON: NONE HISTORY: Pain TECHNIQUE: 3 views submitted FINDINGS: Loss of the normal cervical lordosis with a 2 mm retrolisthesis of C5 relative to C6. Multi level hypertrophic changes are seen and there is moderate to severe degenerative disc disease C5-6 an d C6-C7. Multilevel facet arthropathy. Prevertebral soft tissue structures within normal limits. [place] toid intact. IMPRESSION: 1. Multilevel facet arthropathy with the moderate to severe degenerative disc disease C5-6 and C6-C7.
== END | disposition home or self-care (01) ==
LOC: RADXRMAIN 14:58
PROVIDERS: ATTEND Nurse Practitioner Family
DX: M50.322 Other cervical disc degeneration at C5-C6 level (principal); M47.812 Spondylosis without myelopathy or radiculopathy, cervical region
CPT/HCPCS: 72040

== ENCOUNTER → 2020-11-16 | Outpatient (CLI) | payer MEDICARE ==
--- NOTE | 2020-11-17 05:19 | CT ---
EXAMINATION TYPE: CT angio abdomen pelvis DATE OF EXAM: 11/16/2020 COMPARISON: 11/19/2019 HISTORY: H/O dissection of iliac artery CT DLP: 710.70 mGycm Automated exposure control for dose reduction was used. CONTRAST: Performed with IV Contrast, patient injected with 100ml mL of Isovue 370. Images were obtained from the diaphragm to the proximal femurs with IV contrast. There are 3-D post p rocessed images. There is arterial flow in the celiac artery and superior mesenteric artery. There is bilateral arteri al flow in the renal arteries. Abdominal aorta shows no aneurysm. There is arterial dissection seen a t the proximal iliac arteries bilaterally. On the right side this extends to the origin of the senior internet sales consultant al iliac artery. There is some plaque formation and stenosis at the origin of the right internal jg c artery. The dissection is producing some blockage of the origin right internal iliac artery. The di ssection of the left common iliac artery is only a very short segment. There is approximate 50% steno sis. There is arterial flow in both femoral arteries. Bladder distends smoothly. There is no pelvic mass. Appendix appears normal. There is no mesenteric e laquita. There is no ascites or free air. There is no evidence of a solid renal mass. There is 6.5 cm co rtical cyst upper pole left kidney. There is no adrenal mass. There are numerous calcified splenic gr anulomata. Liver pancreas stomach appear intact. The lung bases are clear of consolidation. 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 There is stenosis at the origin right internal iliac ar alex unchanged. 50% stenosis left common iliac artery unchanged. No evidence of aortic dissection. Th ere is variable plaque formation in the lower abdominal aorta without hemodynamic stenosis.
== END | disposition home or self-care (01) ==
LOC: RADCTMAIN 11:34
PROVIDERS: ATTEND Thoracic Surgery (Cardiothoracic Vascular Surgery)
DX: I77.1 Stricture of artery (principal)
CPT/HCPCS: 82565; 84520; 36415; 74174; Q9967

== ENCOUNTER → 2021-02-09 | Outpatient (CLI) | payer MEDICARE ==
[~2021-02-09] MED LIST changes: -LACTATED RINGERS 1,000 ML IV SCH; +REGADENOSON 0.4 MG/5 ML SYRINGE IV PRN
--- NOTE | 2021-02-09 10:46 | NM ---
EXAMINATION TYPE: NM stress lexiscan cardiolite DATE OF EXAM: 02/09/2021 COMPARISON: NONE HISTORY: Shortness of breath TECHNIQUE: After the intravenous administration of 10.1 mCi Tc 99m Sestamibi - Cardiolite resting SP ECT images acquired 45 minutes post injection. The patient received 0.4mg Lexiscan, 25.4 mCi Tc 99m Sestamibi - Stress images obtained [address] injection FINDINGS: Review of stress and rest SPECT images demonstrates ingestion of a small area of stress-induced rever sibility involving the apical lateral myocardium. Gated analysis shows normal wall motion with an es timated left ventricular ejection fraction of 53 %. Were called to referring clinician 02/09/2021 at 1 0:42 AM. IMPRESSION: Findings suspicious for small area of stress-induced reversible ischemia apical lateral myocardium co rrelate clinically.
--- NOTE | 2021-02-09 12:47 | EST ---
EXERCISE STRESS DATE OF SERVICE: February 09, 2021 AGE: 65 SEX: M HT: 5'10" WT: 220 lbs. PROTOCOL: Lexiscan STAGE: NA DURATION OF EXERCISE: NA HEART RATE REST: 60 BLOOD PRESSURE REST: 160/84 MAXIMUM HEART RATE ACHIEVED: 84 MAXIMUM BLOOD PRESSURE: 207/88 85% MPHR: 130 100% MPHR: 153 METS: NA INDICATIONS: STRESS DATA: Pretesting physical examination showed a heart rate of 60, pressure is 160/84 mmHg. Baseline EKG showed sinus mechanism 0.4 mg of Lexiscan over 15 seconds per protocol. Max heart rate was 84 beats per minute. Maximum pressure was 207/88 mmHg. Clinically, the patient did not have any symptoms and the EKG did not show any significant ST or T- wave abnormalities concerning for ischemia. CONCLUSION: 1. Nondiagnostic electrocardiogram stress testing in response to Lexiscan. 2. Please follow up on the Cardiolite portion on a separate report from Radiology Department. MMODL / IJN: [id number] /
== END | disposition home or self-care (01) ==
LOC: RADNMMAIN 07:28
PROVIDERS: ATTEND Family Medicine
DX: R06.09 Other forms of dyspnea (principal)
CPT/HCPCS: 93017; 78452; A9500; J2785

== ENCOUNTER → 2021-02-20 | Outpatient (CLI) | payer MEDICARE ==
[2021-02-20 15:46] LABS: HCT 42.6 % (39.0-53.0); HGB 14.2 gm/dL (13.0-17.5); MCH 30.9 pg (25.0-35.0); MCHC 33.2 g/dL (31.0-37.0); Platelet Count 376 k/uL (150-450); RBC 4.58 m/uL (4.30-5.90); RDW 13.5 % (11.5-15.5)
[2021-02-20 16:04] LABS: African American GFR (CKD) >90 (>60 ml/min/1.73 sqM); Anion Gap 7 mmol/L; Blood Urea Nitrogen 24 mg/dL (9-20); Carbon Dioxide 27 mmol/L (22-30); Chloride 106 mmol/L (98-107); Non-African American GFR(CKD) 82 (>60 ml/min/1.73 sqM); Potassium 4.2 mmol/L (3.5-5.1); Sodium 140 mmol/L (137-145)
== END | disposition home or self-care (01) ==
LOC: LABPAT 15:20
PROVIDERS: ATTEND Internal Medicine Cardiovascular Disease
DX: Z01.812 Encounter for preprocedural laboratory examination (principal); R06.02 Shortness of breath
CPT/HCPCS: 80051; 82565; 84520; 85027

== ENCOUNTER → 2021-03-20 | Day surgery (SDC) | payer MEDICARE ==
[2021-03-09 15:44] VITALS: BMI 31.5
[~2021-03-20] MED LIST changes: +ALPRAZolam 0.25 MG TAB PO PRN; +ALPRAZolam 0.5 MG TAB PO PRN; +ASPIRIN 325 MG TAB PO STA; +ATORVASTATIN 80 MG TAB PO STA; +HEPARIN SODIUM 1,000 UN/ML (10ML VL) IV ONE; +HEPARIN SODIUM 1,000 UN/ML (10ML VL) ONE; +HEPARIN SODIUM,PORCINE 10,000 UNIT in SODIUM CHLORIDE 0.9% 1,000 ML IRRIGATION PRN; +HEPARIN SODIUM,PORCINE 2,500 UNIT in SODIUM CHLORIDE 0.9% 250 ML IRRIGATION PRN; +IOPAMIDOL-370 100ML BTL INJ ONE; +LIDOCAINE 1% INJ 10MG/ML (10 ML MDV) SQ ONE; +LIDOCAINE 1% INJ 10MG/ML (20 ML MDV) ONE; +NITROGLYCERIN SL TABS 0.4 MG TAB SUBLINGUAL PRN; -REGADENOSON 0.4 MG/5 ML SYRINGE IV PRN; +RX INFO: IV CONTRAST WAS GIVEN 1 EACH MISC MISCELLANE PRN; +SODIUM CHLORIDE 0.9% 1,000 ML IV SCH; +SODIUM CHLORIDE 0.9% 1,000 ML in EMPTY BAG 1 BAG IV ONE; +VERAPAMIL 2.5 MG/ML 2 ML AMP ONE; +fentaNYL (PF) 50 MCG/ML 2 ML AMP IV ONE; +fentaNYL (PF) 50 MCG/ML 2 ML AMP ONE
[2021-03-20 07:27] VITALS: RESP 16; TEMP 98.2
[2021-03-20] MEDS: MIDAZOLAM 2 MG/2 ML VIAL IV ONE ×2 (07:40→07:44)
[2021-03-20] MEDS: VERAPAMIL SYRINGE (5 MG/10 ML) INTRAARTER ONE ×2 (07:51→08:03)
[2021-03-20 10:13] VITALS: BP 117/54; PULSE 56
--- NOTE | 2021-03-20 10:33 | LTR ---
DATE OF SERVICE: 03/20/2021 Dear Eddie: I performed cardiac catheterization on Lenin Benton. A detailed cardiac catheterization note is enclosed for your records. You referred this patient to me because of an abnormal stress test showing ischemia in LAD and circumflex coronary artery distributions. His cardiac catheterization did not reveal significant obstructive CAD and his management is going to be in the form of risk factor modification, optimal medical therapy. The abnormal stress test is probably a false positive stress test. Thank you for giving me the privilege of participating in the care of this pleasant gentleman. Sincerely, OSMIN / SYLVAIN: [id number] /
--- NOTE | 2021-03-20 10:33 | CC ---
CARDIAC CATHETERIZATION REPORT INDICATION: Exertional shortness of breath with abnormal stress test showing ischemia in LAD distribution. PROCEDURE NOTE: After obtaining informed consent, the patient underwent left heart catheterization with coronary angiogram using a right radial artery access. The patient tolerated the procedure well without any obvious immediate complications. A TR band was applied for hemostasis and pulse ox was checked in the index finger and it was 96%. We obtained a right radial artery access using a micropuncture needle and under fluoroscopic guidance, the wire was passed into the ascending aorta and from there right and left coronary artery catheters were exchanged under fluoroscopic guidance. The patient received verapamil both before the starting of the cardiac catheterization and at the end and he also received 4000 units of IV heparin. FINDINGS: HEMODYNAMICS: Left ventricular end-diastolic pressure is 15 mm. There is no significant gradient across the aortic valve. LEFT VENTRICULOGRAM: Not performed. ANGIOGRAPHIC DATA: The left main coronary artery: Left main coronary artery is a normal-sized vessel, shows calcification but is free of significant stenosis. Divides into left anterior descending coronary artery and circumflex coronary arteries. Circumflex coronary artery is a codominant system and is free of significant disease. The LAD itself does not have any focal stenotic lesion. Right coronary artery is a large dominant vessel, shows mild calcification without significant focal obstructive disease. CONCLUSIONS: 1. Mild active coronary artery disease without focal stenotic areas. 2. Patient's stress test is a false positive stress test. 3. Shortness of breath is not related to his underlying ischemic heart disease. PLAN: Patient will be treated with optimal medical therapy including aspirin, statins, exercise, weight loss. The patient has history of paroxysmal atrial fibrillation and will resume the Eliquis this evening and continue rest of his medications. The target LDL cholesterol is 70 or below. The patient has history of iliac artery aneurysm. Was assisted by Dr. Lucio Louis, during this procedure. MMODL / IJN: [id number] /
== END ==
LOC: CATHCVL 06:08
PROVIDERS: ATTEND Internal Medicine Cardiovascular Disease
DX: I25.10 Atherosclerotic heart disease of native coronary artery without angina pectoris (principal); I48.0 Paroxysmal atrial fibrillation; R06.02 Shortness of breath
CPT/HCPCS: 93458; C1769; C1894; J2250; J3010; J1644; J2001; Q9967

== ENCOUNTER → 2021-05-22 | Outpatient (CLI) | payer MEDICARE ==
--- NOTE | 2021-05-22 09:47 | CTL ---
EXAMINATION TYPE: CT Low Dose Lung DATE OF EXAM ORDERED: 05/22/2021 HISTORY: 65-year-old male Z87.891, Personal history of tobacco use. Lung cancer screening CT DLP: 133.[address] CTDI: 3.60 mGy Automated exposure control for dose reduction was used. SCREENING VISIT: Baseline screening COMPARISON: Chest radiograph 05/08/2021. Also, correlation CT abdomen 11/08/2016 TECHNIQUE: Low dose computed tomography scan was performed through the chest with coronal and sagitta l reconstructions. CT DIAGNOSTIC QUALITY: Satisfactory FINDINGS: Heart normal size without pericardial effusion. Prominent epicardial fat pad. LAD and RCA coronary ar alex calcifications are present. Mild aneurysm aortic root at 4.1 cm. Bovine configuration to the aortic arch. No thoracic lymphadenopathy by CT size criteria. Calcified left hilar lymph nodes are demonstrated. Biapical pleural-parenchymal scarring. Moderate centrilobular emphysema. Mild diffuse bronchial wall thickening. Some strandy areas of scarring or atelectasis are noted.. 9 mm anterior right mid to lower lung pulmonary nodule, axial image 161. Adjacent anterior right lowe r lung pulmonary nodule measuring 9 mm as well. He seemed to be located along the minor fissure. Jayce gn etiology such as intrafissural lymph nodes are suspected. Short interval follow-up recommended to confirm. Cluster of 5 pulmonary nodules are present in the posterior right lower lobe, axial images 230 - 244 measuring up to 6 mm. No consolidation or pleural effusion. Calcified granulomas within the spleen. Partially visualized large hypodense lesion upper pole left k idney measuring 7.1 cm. This corresponds to a cyst having measured 6.3 cm back on 11/08/2016. Bones: Mild anterior endplate spondylosis lower thoracic spine with developing dish. IMPRESSION: 1. LungRADS Category 4A ( Probably suspicious, 5-15% chance of malignancy). A couple 9 mm pulmonary n odules on the right. Intrafissural lymph nodes are possible. Also, a cluster of nodules in the right lower lobe measuring up to 6 mm. 2. COPD with moderate emphysema. Recommend smoking cessation. Evidence of prior granulomas disease. 3. LAD and RCA coronary artery calcifications. CT LUNG RAD AND CT CHEST RECOMMENDATION: Lung-Rad 4A Suspicious: Follow-up 3 month LDCT.
== END | disposition home or self-care (01) ==
LOC: RADCTMAIN 07:59
PROVIDERS: ATTEND Internal Medicine Critical Care Medicine
DX: J44.9 Chronic obstructive pulmonary disease, unspecified (principal); I25.10 Atherosclerotic heart disease of native coronary artery without angina pectoris; Z87.891 Personal history of nicotine dependence
CPT/HCPCS: 71271

== ENCOUNTER → 2021-10-30 | Outpatient (CLI) | payer MEDICARE ==
--- NOTE | 2021-10-30 19:35 | CT ---
EXAMINATION TYPE: CT angio abdomen pelvis DATE OF EXAM: 10/30/2021 INDICATION: Follow up for abdominal aortic aneurysm. CT DLP: 2105 mGy.cm Automated Exposure Control for Dose Reduction was Utilized. TECHNIQUE AND CONTRAST: CT scan of the abdomen and pelvis is performed without and with IV Contrast, as per CT aortogram prot ocol. The patient injected with 100ml mL of Isovue 370. MIP and 3-D reconstruction images were genera ahsan on an independent workstation and reviewed COMPARISON: CT dated 11/16/2020 FINDINGS: The inferior aspect of the descending thoracic aorta measures 3.2 cm. Infrarenal abdominal aortic ect rosa measuring up to 2.5 cm, stable. Extensive arterial atherosclerotic calcifications with aortic at herosclerotic plaques. Chronic dissection of the common iliac arteries, stable. Reduced enhancement o f the anterior aspect of the inferior mesenteric artery patent distally. Severe stenosis of the origin of the right internal iliac artery yet patent distally, stable. Moderat e stenosis of the origin of the left internal iliac artery yet patent distally, stable. Stable remain cornelius of the previously seen scattered arterial atherosclerotic calcification and atheromatous plaques. Patent remainder of the major abdominal and pelvic arteries. No definite hepatic focal lesion by this CT angiographic study. Unremarkable gallbladder, pancreas an d adrenals. Stable tiny splenic calcifications likely related to be previous granulomatous infection. Stable left upper pole simple renal cyst without suspicious feature, otherwise unremarkable kidneys. Prominent prostate. Unremarkable seminal vesicles. The urinary bladder is not distended. Unremarkable nondistended stomach, duodenum and small bowel. No gross colonic abnormality. Right fat-containing inguinal hernia. No suspicious lymphadenopathy or si zable ascites. Bilateral scrotal hydroceles. Grossly unremarkable lung bases. Advanced degenerative c hanges of the lumbar spine. No aggressive bone lesion. IMPRESSION: No evidence of abdominal aortic aneurysm. Stable infrarenal abdominal aortic ectasia. Stable atherosc lerotic changes and bilateral common iliac artery chronic dissection as described above. Other incide ntal findings as described above.
== END | disposition home or self-care (01) ==
LOC: RADCTMAIN 11:08
PROVIDERS: ATTEND Thoracic Surgery (Cardiothoracic Vascular Surgery)
DX: I71.4 Abdominal aortic aneurysm, without rupture (principal)
CPT/HCPCS: 82565; 84520; 36415; 74174; Q9967

== ENCOUNTER → 2022-04-19 | Outpatient (CLI) | payer MEDICARE ==
--- NOTE | 2022-04-19 17:25 | MR ---
EXAMINATION TYPE: MR lumbar spine wo con DATE OF EXAM: 04/19/2022 COMPARISON: None HISTORY: LOW BACK PAIN CONTRAST: 0 mL intravenous Gadavist. TECHNIQUE: Multiplanar, multisequence images of the lumbar spine were acquired. FINDINGS: L5-S1: Left hemilaminectomy at this presence. There is narrowing of the disc height. Residual disc bu lge has mild anterior thecal sac contact. No AP spinal canal stenosis present. Lateral recesses appea r patent. Severe right foraminal stenosis present. Moderate to severe left foraminal stenosis is pres ent correlate with S1 radicular symptoms. L4-L5: Disc desiccation is present. Minimal residual disc bulge is present susceptibility artifact is present posteriorly. Right paracentral disc herniation appears to be present with some extension int o the right lateral direction. Correlate with right radicular symptoms. No obvious spinal canal steno sis is present. Severe right and moderate left foraminal stenosis is present. Facet hypertrophy is pr esent L3-L4: Disc desiccation is present. Mild disc space narrowing is present. Schmorl's node formation at the L3 and L4 endplates are present. Facet hypertrophy is present. No significant disc bulge or foca l disc herniation is evident. Moderate left foraminal stenosis present. L2-L3: There is loss of disc height. Vacuum disc phenomenon may be present. No significant residual d isc bulge is evident. Minimal subligamentous disc extension may be present No spinal canal stenosis i s present. Neural foramen are patent. Facet hypertrophy is present without significant posterior-late ral thecal sac impression. L1-L2: No significant disc bulge or disc herniation. No spinal canal stenosis. No foraminal stenosi s. T12-L1: No significant disc bulge or disc herniation. No spinal canal stenosis. No foraminal stenos is. IMPRESSION: 1. Right paracentral disc herniation L4-5 with moderate intrathecal sac compression and exiting nerve root displacement. Correlate with right radicular symptoms. 2. Multilevel degenerative disc changes. 3. Additional severe foraminal stenosis present L5-S1 bilaterally.
== END | disposition home or self-care (01) ==
LOC: RADMRIMAIN 11:31
PROVIDERS: ATTEND Orthopaedic Surgery Orthopaedic Surgery of the Spine
DX: M47.816 Spondylosis without myelopathy or radiculopathy, lumbar region (principal); M41.86 Other forms of scoliosis, lumbar region; M51.36 Other intervertebral disc degeneration, lumbar region; M62.830 Muscle spasm of back; J44.9 Chronic obstructive pulmonary disease, unspecified
CPT/HCPCS: 72148

== ENCOUNTER → 2022-05-30 | Outpatient (CLI) | payer MEDICARE ==
--- NOTE | 2022-05-30 16:40 | CTL ---
EXAMINATION TYPE: CT Low Dose Lung DATE OF EXAM ORDERED: 05/30/2022 HISTORY: Z87.891. Lung cancer screening CT DLP: 134.[address] CTDI: 3.6 mGy Automated exposure control for dose reduction was used. SCREENING VISIT: Follow-up COMPARISON: CT Low Dose Lung cancer screening 05/22/2021. TECHNIQUE: Low dose computed tomography scan was performed through the chest at 1 mm thick sections a nd reconstructed images in multiple planes at 1 mm and [address] DIAGNOSTIC QUALITY: Satisfactory FINDINGS: LUNG NODULES: Stable 10 mm right lower lobe nodule along the right minor fissure (series 4, image 188 ). Stable 8 mm right lower lobe nodule along the right minor fissure (series 4, image 172). Both of t hese may represent intrafissural lymph nodes. Stable right posterior upper lobe 2 mm nodule (series 4 , at 106). New right lower lobe 4 mm pulmonary nodule (series 4, image 216). New right upper lobe 2 m m pulmonary nodule (series 4, image 118). Stable calcified granuloma along the left major fissure (se rico 4, image 158). LUNGS: COPD: Severity: Moderate Fibrosis: Severity: None Lymph nodes: Calcified left hilar lymph nodes. Other findings: None RIGHT PLEURAL SPACE: Effusion: None Calcification: None Thickening: Apical pleural thickening. Pneumothorax: None LEFT PLEURAL SPACE: Effusion: None Calcification: None Thickening: Apical pleural thickening. Pneumothorax: None HEART: Heart Size: Normal Coronary Calcification: Moderate Pericardial Effusion: None OTHER FINDINGS: Upper abdomen: Partial visualization of left superior pole renal cyst measuring up to 7.0 cm. Scatter ed calcified granulomas within the visualized spleen. Bony thorax: No acute osseous adenopathy. Mild degenerative changes of the visualized spine. Supraclavicular region: None Other: None IMPRESSION: 1. Stable pulmonary nodules with 2 new right lung micronodules measuring up to 4 mm. 2. Moderate COPD changes. 3. Sequelae of granulomatous disease. CT LUNG RAD AND CT CHEST RECOMMENDATION: Lung-Rad 3 Probably Benign: 6 month follow-up LDCT. S Modifier (other clinically significant findings): None
== END | disposition home or self-care (01) ==
LOC: RADCTMAIN 15:54
PROVIDERS: ATTEND Internal Medicine Critical Care Medicine
DX: Z12.2 Encounter for screening for malignant neoplasm of respiratory organs (principal); J44.9 Chronic obstructive pulmonary disease, unspecified; R91.8 Other nonspecific abnormal finding of lung field; Z87.891 Personal history of nicotine dependence
CPT/HCPCS: 71271

== ENCOUNTER → 2023-01-15 | Outpatient (CLI) | payer MEDICARE ==
--- NOTE | 2023-01-15 14:13 | CTL ---
EXAMINATION TYPE: CT Low Dose Lung DATE OF EXAM ORDERED: 01/15/2023 HISTORY: Z87.891. Quit 9 years ago. 90 pack year history. Lung cancer screening CT DLP: 135.[address] CTDI: 3.4 mGy Automated exposure control for dose reduction was used. SCREENING VISIT: Follow-up COMPARISON: CT low-dose lung cancer screening 05/30/2022, 05/22/2021 TECHNIQUE: Low dose computed tomography scan was performed through the chest at 1 mm thick sections a nd reconstructed images in multiple planes at 1 mm and [address] DIAGNOSTIC QUALITY: Satisfactory FINDINGS: LUNG NODULES: : Stable 10 mm right lower lobe nodule along the right minor fissure (series 4, image 1 86). Stable 8 mm right lower lobe nodule along the right minor fissure (series 4, image 170). Both of these may represent intrafissural lymph nodes. Stable right posterior upper lobe 2 mm nodule (series 4, image 100). Previously seen right lower lobe 4 mm pulmonary nodule is not visualized on today's e xam. Stable right upper lobe 2 mm pulmonary nodule (series 4, image 118). Stable calcified granuloma along the left major fissure (series 4, image 158). No new or enlarging pulmonary nodules. LUNGS: COPD: Severity: Moderate Fibrosis: Severity: None Lymph nodes: No pathologic enlarged lymph nodes. Left hilar calcified lymph nodes. Other findings: None RIGHT PLEURAL SPACE: Effusion: None Calcification: None Thickening: Apical pleural thickening Pneumothorax: None LEFT PLEURAL SPACE: Effusion: None Calcification: None Thickening: Apical pleural thickening Pneumothorax: None HEART: Heart Size: Normal Coronary Calcification: Moderate Pericardial Effusion: None OTHER FINDINGS: Upper abdomen: Scattered punctate calcified granulomas within the spleen. Redemonstration of left jarod al superior pole 7.5 cm cyst. Bony thorax: No acute osseous abnormality. Mild degenerative changes of the visualized spine. Supraclavicular region: None Other: None IMPRESSION: 1. Stable pulmonary nodules. No new or enlarging pulmonary nodules. 2. Moderate COPD changes. 3. Sequelae of prior granulomatous disease. CT LUNG RAD AND CT CHEST RECOMMENDATION: Lung-Rad 2 Benign Appearance or Behavior: Continue annual sc reening with LDCT in 12 months. S Modifier (other clinically significant findings): None
== END | disposition home or self-care (01) ==
LOC: RADCTMAIN 13:41
PROVIDERS: ATTEND Internal Medicine Critical Care Medicine
DX: Z12.2 Encounter for screening for malignant neoplasm of respiratory organs (principal); J44.9 Chronic obstructive pulmonary disease, unspecified; R91.8 Other nonspecific abnormal finding of lung field; Z87.891 Personal history of nicotine dependence
CPT/HCPCS: 71271

== ENCOUNTER → 2023-02-21 | Outpatient (CLI) | payer MEDICARE ==
[2023-02-21 13:39] LABS: African American GFR (CKD) >90 (>60 ml/min/1.73 sqM); Blood Urea Nitrogen 25 mg/dL (9-20); Non-African American GFR(CKD) >90 (>60 ml/min/1.73 sqM)
--- NOTE | 2023-02-24 10:42 | CT ---
EXAMINATION TYPE: CT angio abdomen pelvis DATE OF EXAM: 02/21/2023 COMPARISON: 10/30/2021 HISTORY: 67-year-old male I71.40, abdominal aortic aneurysm without rupture TECHNIQUE: Contiguous axial scanning of the abdomen and pelvis before and after administration of 100 ml Isovue-370 IV contrast. Coronal/sagittal MIP reconstructions performed. 3-D reconstructions gene rated on a dedicated independent workstation. CT DLP: 1731.4 mGycm Automated exposure control for dose reduction was used. FINDINGS: The heart is normal size without pericardial effusion. Some similar subsegmental atelectasis medial a spect of the inferior lingula and right middle lobe. At least moderate underlying emphysematous nair e within the visualized lower lungs. Liver enlarged at 20.4 cm with diffuse diminished attenuation. No abnormal gallbladder distention. Adrenal glands, right kidney, and pancreas within normal limits allowing for arterial phase imaging. Numerous calcified granulomas within the spleen. Redemonstrated large cyst upper pole right kidney slightly larger 7.9 cm now versus 7.3 cm, previousl y. No dilated small bowel, free fluid, or free air. No mesenteric or retroperitoneal lymphadenopathy. Mild stool burden. Normal appendix. No pericolonic inflammatory change. Similar mild aneurysm of the aorta at the thoracoabdominal junction up to 3.1 cm. Scattered mild athe rosclerotic calcifications are present in the abdominal aorta and iliac arteries, more mild to modera te along the infrarenal portion. Some segmental fusiform dilatation is present infrarenal portion up to 2.3 cm. No significant ectasia or aneurysm is seen. Similar intraluminal linear filling defect right common iliac artery containing fenestrations, possib le chronic dissection flap. Similar moderate atherosclerotic narrowing proximal left common iliac art krystal. Moderate narrowing at the origin of the left internal iliac artery and severe at the origin of t he right internal iliac artery. There is mild atherosclerotic narrowing at the origin of the celiac axis. MYRA may be chronically occl uded. Otherwise, visceral arteries appear patent. Small accessory branch left renal artery noted. Bladder partially distended. Prostate gland mildly enlarged at 4.4 cm wide. No abnormal fluid collect ion in the pelvis or pelvic lymphadenopathy. Posterior interspinous fusion at L3-L4 L4-L5 with fixed grade 1 retrolisthesis at these levels and mo derate to advanced degenerative disc disease. IMPRESSION: 1. STABLE MILD ANEURYSM OF THE AORTA AT THE THORACOABDOMINAL JUNCTION UP TO 3.1 CM. 2. STABLE MINIMAL FUSIFORM DILATATION OF THE INFRARENAL ABDOMINAL AORTA UP TO 2.3 CM. NO EVIDENCE FOR AAA. 3. SIMILAR ATHEROSCLEROTIC NARROWING AT THE PROXIMAL LEFT COMMON ILIAC ARTERY AND AT THE ORIGIN OF TH E BILATERAL INTERNAL ILIAC ARTERIES. UNCHANGED CHRONIC DISSECTION RIGHT COMMON ILIAC ARTERY. 4. INCIDENTAL: COPD. 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
== END | disposition home or self-care (01) ==
LOC: RADCTMAIN 13:01
PROVIDERS: ATTEND Family Medicine
DX: I71.60 Thoracoabdominal aortic aneurysm, without rupture, unspecified (principal); I10 Essential (primary) hypertension; I77.1 Stricture of artery
CPT/HCPCS: 82565; 84520; 36415; 74174; Q9967

== ENCOUNTER → 2024-01-08 | Outpatient (CLI) | payer MEDICARE ==
--- NOTE | 2024-01-16 22:17 | P.PCN ---
Date of Procedure: 02/07/24 Operative Findings: Home sleep study testing Date of service is 01/08/2024 Pertinent history This is a 68-year-old male patient with classical manifestations of obstructive sleep apnea. The patient has been diagnosed having ISABEL many years back and after being treated with CPAP therapy for quite some time, the patient discontinued the treatment. He is coming in for reevaluation. Based on this, the patient was given a home sleep study to evaluate the presence of obstructive sleep apnea and his severity and decide on treatment accordingly. He is known to have COPD, chronic A-fib, hyperlipidemia, hypertension and he is obese. Pertinent physical findings Height is 5 feet and 7 inches, weight is 229 pounds, body mass index is 35.9 Technical description The [email or web address] Ap[employer] system was used to complete this home sleep study. Sleep study. The total recording duration was 7 hours and 48 minutes. The study started at 10:15 PM and ended at 6:03 AM. There was a total of 7 hours and 36 minutes of flow monitoring and 7 hours and 37 minutes of oxygen saturation monitoring. Results Respiratory analysis showed a total of 40 obstructive apneas and 216 obstructive hypopneas and the resulting AHI was 33.7, slightly worsened in supine body position. Oxygenation analysis Multiple episodes of oxygen saturation were encountered throughout sleep study. The average pulse ox during sleep was 91% with the lowest pulse ox being at 80%. This patient spent approximately 1 hours and 50 minutes of sleep time below pulse ox of 89%. Baseline pulse ox while awake on room air oxygen is 92% Cardiac summary Average heart rate was 66 with a minimum heart rate of 48 and a maximum heart rate of 100 Assessment Severe obstructive sleep apnea with an AHI of 33.7 Nocturnal oxygen desaturation with a minimum pulse ox of 80% COPD Chronic A-fib Hypertension Hyperlipidemia obesity Plan Will offer the patient an APAP machine. Patient will be set at a pressure of 5/15 cm of water. He will be encouraged to lose weight as the patient has gained approximately 50 pounds. Will optimize his COPD. The patient will see me back in a short-term follow-up to assess his clinical compliance and success of treatment. He will be offered a fullface mask.
== END ==
LOC: 3 N SLEEP 16:57
PROVIDERS: ATTEND Internal Medicine Critical Care Medicine
DX: G47.33 Obstructive sleep apnea (adult) (pediatric) (principal); G47.36 Sleep related hypoventilation in conditions classified elsewhere; J44.9 Chronic obstructive pulmonary disease, unspecified; I10 Essential (primary) hypertension; I48.20 Chronic atrial fibrillation, unspecified; E78.5 Hyperlipidemia, unspecified; E66.9 Obesity, unspecified; Z68.35 Body mass index [BMI] 35.0-35.9, adult; Z88.8 Allergy status to other drugs, medicaments and biological substances; Z79.899 Other long term (current) drug therapy; Z79.01 Long term (current) use of anticoagulants; Z79.51 Long term (current) use of inhaled steroids; Z87.891 Personal history of nicotine dependence

== ENCOUNTER → 2024-02-11 | Outpatient (CLI) | payer MEDICARE ==
--- NOTE | 2024-02-11 16:29 | CTL ---
EXAMINATION TYPE: CT Low Dose Lung DATE OF EXAM ORDERED: 02/11/2024 HISTORY: 68-year-old male Z8 7.891, personal history of nicotine dependence, former smoker with 60 pa ck-year history. Lung cancer screening CT DLP: 169.[address] CTDI: 3.9 mGy Automated exposure control for dose reduction was used. SCREENING VISIT: Annual follow-up COMPARISON: 01/15/2023 TECHNIQUE: Low dose computed tomography scan was performed through the chest at 1 mm thick sections a nd reconstructed images in multiple planes at 1 mm and [address] DIAGNOSTIC QUALITY: Satisfactory FINDINGS: Heart normal size without pericardial effusion. LAD and RCA coronary artery calcifications are presen t. Mild aortic valvular calcifications. Ectatic ascending aorta 3.8 cm. Minimal atherosclerotic arch calcifications. Conventional arch vessel branching anatomy. Borderline caliber main right and left pulmonary arteries up to 2.5 cm may reflect underlying pulmona ry arterial hypertension. No thoracic lymphadenopathy by CT size criteria. Calcified left hilar lymph nodes suggest sequela of prior granulomatous disease. Mild diffuse bronchial wall thickening. No consolidation or pleural effusion. * Stable 9 mm medial right middle lobe pulmonary nodule, axial image 190. * Stable 9 mm fissural pulmonary nodule anterior right lower lung, axial image 174. * 3 mm right upper lobe pulmonary nodule, axial image 76 is unchanged. * A couple calcified granulomas in the left lung are also redemonstrated. * A few clustered 3 mm pulmonary nodules within the lingula, refer to axial images 152 through 155, not seen previously. Moderate emphysematous change. Minimal biapical pleural-parenchymal scarring. Visualized upper abdomen shows a large left upper pole renal cyst measuring up to 7.8 cm. There may b e underlying mild hepatic steatosis. Calcified granulomas within the spleen. Bones: DISH in the lower thoracic spine. IMPRESSION: 1. LungRADS 2, benign. A few pulmonary nodules measuring up to 9 mm remain unchanged. Some clustered tiny 3 mm nodules in the lingula are new but would also be categorized as benign. Continue annual low -dose lung cancer screening CT. 2. COPD with moderate emphysema. Evidence of prior granulomatous disease. 3. LAD and RCA coronary artery calcifications. CT LUNG RAD AND CT CHEST RECOMMENDATION: Lung-Rad 2 Benign Appearance or Behavior: Continue annual sc reening with LDCT in 12 months. S Modifier (other clinically significant findings): None
== END | disposition home or self-care (01) ==
LOC: RADCTMAIN 13:13
PROVIDERS: ATTEND Family Medicine
DX: Z12.2 Encounter for screening for malignant neoplasm of respiratory organs (principal); Z87.891 Personal history of nicotine dependence; J43.9 Emphysema, unspecified; I25.10 Atherosclerotic heart disease of native coronary artery without angina pectoris
CPT/HCPCS: 71271

== ENCOUNTER → 2024-05-14 | Outpatient (CLI) | payer MEDICARE ==
[2024-05-14 16:15] LABS: ALT 23 U/L (10-49); AST 18 U/L (14-35); Chol/HDL Ratio 4.81 Ratio; LDL Cholesterol,Calculated 118.3 mg/dL (0.0-131.0)
== END | disposition home or self-care (01) ==
LOC: LABWHC1 10:55
PROVIDERS: ATTEND Internal Medicine Cardiovascular Disease
DX: E78.2 Mixed hyperlipidemia (principal)
CPT/HCPCS: 36415; 80061; 84450; 84460